=== PATIENT | female | born 1985 | race Two or more races ===

== ENCOUNTER 2021-04-15 17:26 | Emergency (ER) | payer OTHER ==
[~2021-04-15] VITALS: Ht 160 cm; Wt 86.2 kg
[2021-04-15] MEDS ORDERED: TETANUS-DIPTH-ACEL PERTUSSIS 0.5ML SYR Tdap IM ONE (17:45)
[2021-04-15 18:19] LABS: Mean Corpuscular Hemoglobin 22.9 pg (28.0-32.0)
[2021-04-15 18:21] LABS: Basophils # (auto) 0 10 ^3/uL (0-0.2); Basophils % (auto) 0.7 % (0.0-2.0); Eosinophils # (auto) 0.1 10 ^3/uL (0-0.8); Eosinophils % (auto) 1.8 % (0.0-7.0); Hematocrit 31.6 % (36.0-46.0); Hemoglobin 9.9 g/dL (12.2-16.2); Lymphocytes # (auto) 2.1 10 ^3/uL (0.4-5.4); Lymphocytes % (auto) 31.9 % (10.0-50.0); Mean Corpuscular Hgb Conc. 31.5 g/dL (32.0-36.0); Mean Corpuscular Volume 72.7 fL (80.0-100.0); Monocytes # (auto) 0.6 10 ^3/uL (0-1.3); Monocytes % (auto) 9.4 % (0.0-12.0); Neutrophils # (auto) 3.7 10 ^3/uL (1.6-8.6); Neutrophils % (auto) 56.2 % (37.0-80.0); Nucleated Red Blood Cells % 0.1 %; Red Blood Cells 4.34 10^6/uL (4.0-5.20); Red Cell Distribution Width 19.1 % (11.8-14.3); White Blood Cell 6.6 10^3/uL (4.4-10.8)
[2021-04-15 18:30] LABS: Albumin 3.8 g/dL (3.4-5.0); Calcium 8.3 mg/dL (8.5-10.1); Potassium 4.1 mmol/L (3.5-5.1)
[2021-04-15 18:34] LABS: BUN/Creatinine Ratio 18.6; Bilirubin, Total 0.2 mg/dL (0.2-1.0); Total Protein 7.8 g/dL (6.4-8.2)
[2021-04-15] MEDS ORDERED: SODIUM CHLORIDE 0.9% 1,000 ML IV ONE (18:45)
[2021-04-15] MEDS ORDERED: fentaNYL CITRATE 100 MCG/2 ML VL IV ONE ×2 (19:00→20:15)
[2021-04-15 19:28] VITALS: BP 112/82
[2021-04-15] MEDS ORDERED: MORPHINE SULFATE 4 MG/ML SYR/VIAL ONE (20:15)
[2021-04-15] MEDS ORDERED: MORPHINE SULF INJ 2 MG/ML SYRINGE 1ML ONE (20:15)
[2021-04-15] MEDS ORDERED: MORPHINE SULFATE 10 MG/ML INJ 1ML SDV IV ONE (20:30)
[2021-04-15] MEDS ORDERED: cefTRIAXone 1GM/50ML D5W 50 ML IV ONE (20:45)
== END 2021-04-15 21:32 | disposition home or self-care (01) ==
LOC: ER 17:26
DX: S01.01XA Laceration without foreign body of scalp, initial encounter (principal); S09.8XXA Other specified injuries of head, initial encounter; F10.129 Alcohol abuse with intoxication, unspecified; R51.9 Headache, unspecified; Y90.8 Blood alcohol level of 240 mg/100 ml or more; V49.49XA Driver injured in collision with other motor vehicles in traffic accident, initial encounter; Y93.89 Activity, other specified; Y92.488 Other paved roadways as the place of occurrence of the external cause; Y99.8 Other external cause status
CPT/HCPCS: 12004; 36415; 70450; 72125; 73080; 73090; 80053; 80320; 85025; 90471; 90715; 96361; 96365; 96375; 99285; J0696; J2270; J3010; J7030

== ENCOUNTER 2025-09-07 09:59 | Day surgery (SDC) | payer MEDICAID ==
[2025-09-03 10:40] LABS: Hemoglobin 11.6 g/dL (12.2-16.2)
[2025-09-03 10:42] LABS: Hematocrit 36.1 % (36.0-46.0); Mean Corpuscular Hemoglobin 24.9 pg (28.0-32.0); Mean Corpuscular Volume 77.2 fL (80.0-100.0); Nucleated Red Blood Cells % 0.1 %
[2025-09-03 10:45] LABS: Urine Budding Yeast OCCASIONAL /hpf (None Seen); Urine Protein, UAD Negative (Negative)
[2025-09-03 10:48] LABS: INR 1.04 (0.9-1.15); Partial Thromboplastin Time 23.0 SEC (24.5-34.5); Prothrombin Time 11.0 sec (9.3-11.8)
[2025-09-03 10:53] LABS: Alanine Aminotransferase 17 U/L (7-40); Alkaline Phosphatase 110 U/L (46-116); Anion Gap 8 (5-15); BUN/Creatinine Ratio 11.7 (10.0-20.0); Calcium 9.7 mg/dL (8.7-10.4); Carbon Dioxide 27 mmol/L (20-31); Chloride 104 mmol/L (98-107); Glucose 82 mg/dL (74-106); Potassium 3.8 mmol/L (3.5-5.1); Sodium 139 mmol/L (136-145); Total Protein 7.9 g/dL (5.7-8.2)
[2025-09-03 10:54] LABS: Bilirubin, Total 0.8 mg/dL (0.2-1.0)
[2025-09-03 10:55] LABS: Albumin 4.9 g/dL (3.2-4.8); Blood Urea Nitrogen 7 mg/dL (9-23)
[~2025-09-07] VITALS: Ht 162.6 cm; Wt 69.4 kg
[~2025-09-07 09:59] MED LIST: TIRZ15IN2 SC; ceFAZolin 2 GM/D5W50ml 50 ML IV ONE
[2025-09-07] MEDS ORDERED: BUPIVACAINE 0.25% INJ 50ML VIAL ONE (11:31)
[2025-09-07] MEDS ORDERED: ROPIVACAINE 0.5% (5MG/ML) 20ML AMPULE IJ ONE ×2 (13:09→15:24)
[2025-09-07] MEDS ORDERED: HYDROmorphone HCL 2 MG/ML VL/or syr ONE (13:11)
[2025-09-07] MEDS ORDERED: LIDOCAINE 2% (LOCAL ANESTH.) PF 5ml SDV ONE (13:11)
[2025-09-07] MEDS ORDERED: GLYCOPYRROLATE 0.2 MG/ML 1ML VIAL ONE (13:11)
[2025-09-07] MEDS ORDERED: MIDAZOLAM HCL 2MG/2ML 2ml VIAL (1mg/ml) ONE (13:11)
[2025-09-07] MEDS ORDERED: ONDANSETRON HCL 4 MG/2 ML VIAL ONE (13:11)
[2025-09-07] MEDS ORDERED: KETAMINE 50mg/ML 1ml syringe ONE (13:11)
[2025-09-07] MEDS ORDERED: KETOROLAC TROMETH 30 MG/ML 1ML VIAL ONE (13:11)
[2025-09-07] MEDS ORDERED: fentaNYL CITRATE 100 MCG/2 ML VL ONE (13:11)
[2025-09-07] MEDS ORDERED: PROPOFOL 10 MG/ML 20 ML IV ONE (13:50)
[2025-09-07] MEDS ORDERED: MEPERIDINE HCL (25 MG/ML) 1ML VIAL ONE (14:23)
--- NOTE | 2025-09-07 15:29 | DVHOP2 ---
Operative Report - 2 Report Details Date: 09/07/25 Preop Diagnosis: Left knee anterior cruciate ligament tear with lateral meniscus tear Postop Diagnosis: Left knee anterior cruciate ligament tear with lateral meniscus tear and chondromalacia of the lateral compartment Surgeon: Aldo Grubbs MD Bookkeeping Service Sales Agent: Josh Parra, Physician Bookkeeping Service Sales Agent Anesthesiologist: Dr. Dubon Anesthesia: General Implant: [employer] tightrope x2, internal brace x1, fiber stitch x3 Consent: The patient was informed of the risks and benefits of the procedure. These i nclude but are not limited to complications of anesthesia, postoperative infection, incomplete relief of symptoms, recurrence of symptoms, damage to blood vessels, nerves and tendons, deep venous thrombosis, pulmonary embolism and possible need for repeat surgery in the future. Complications: None Estimated Blood Loss: Less than 10 mL Indications for Surgery: The patient is a 39-year-old female who presented to the clinic with a history of knee pain and instability after injury. Clinical and radiological evaluation demonstrated complete ACL tear with lateral meniscus tear. Nonoperative and operative management options were discussed. Surgery in the form of knee arthroscopy with a ACL reconstruction using lateral meniscus repair was discussed with her. Benefits, risks and treatment alternatives were discussed specific complications of the surgery such as neurovascular injury, infection, arthrofibrosis, loss of limb or life were discussed. She decided to proceed with surgical option. Name of Procedure Performed Left knee arthroscopy with ACL reconstruction using tibialis posterior allograft, triple folded, lateral meniscus repair and chondroplasty Procedure Details Procedure Details: Procedure Details: The patient was identified in the preoperative holding area and the surgical site was marked. The consent was verified. The patient was brought into the operating room and placed supine on the operating table. General anesthesia was administered. Intravenous antibiotics were given. The extremity was prepped a nd draped in the usual sterile manner. All the bony prominences were appropriately padded. The extremity was examined under anesthesia and was found to have positive anterior drawer and Mert test with no endpoint. Pivot shift test was also positive. The extremity was prepped and draped in the usual sterile manner. A timeout was called to confirm the identity of patient, the nature of surgery, the availability of implants and x-rays and allergies to medications. Based on exam and MRI findings, an allograft was opened at the back table. This was a tibialis anterior allograft with a folded diameter of 9.5 mm. This was prepared with help of FiberWire stitches on both ends. This was placed on the Graftmaster under tension after mounting it on an Ultrabutton. Bacitracin ointment was applied. A standard anterior portal established. A 30 degree scope was inserted a standard anteromedial portal established, a probe was inserted and the findings are as follows 1. Complete ACL tear 2. Grade 2/3 chondromalacia of the lateral tibial plateau and lateral femoral condyle 3. Normal medial meniscus 4. Lateral meniscus tear, complex 5. No loose bodies 6. Mild chondromalacia in the patellofemoral joint, normal tracking. Meniscus: The lateral meniscus was a complex tear. Initially partial meniscectomy was carried out in the white-white zone. The tear extended all the way to the periphery. There was a horizontal cleavage. I decided to fix this with all-inside technique. Fiber stitch implants were used as per manufacture's recommendations. The 1st anchor was deployed, the 2nd anchor was now departed a different spot and the knotless mechanism was activated. This was a vertical mattress repair. Excellent fixation was noted. Preparation of intercondylar notch: The remaining ACL remnant was removed with the help of a shaver. A notchplasty was performed with a bur. 3 to 4 mm of yamilet ne was removed to make way for the new graft. The footprint of the ACL site was also debrided. Preparation of femoral tunnel: An outside in jig was inserted. This was positioned at the center of the ACL footprint. A guidewire was inserted. Next a reamer was inserted. This was a retroreamer from [employer]. A 20 mm tunnel was drilled. The scope was inserted into the medial portal for this step and the integrity of the lateral and posterior wall was ensured. Preparation of tibiotalar: A tibial tunnel jig was inserted. A guidepin was inserted at the center of the ACL footprint remnant. This was approximately 7 mm anterior to the PCL fibers. Next a guide pin was inserted. Next a 9.5 mm reamer was inserted. Next, a loop was inserted from the femoral side and retrieved through the tibial tunnel. Passage of graft and fixation: The graft was now brought into the operative field and the sutures were passed from the tibial side to the femoral side. The button was visualized entering the femoral tunnel with the scope on the medial border. The button was now flipped. The position was ensured by tugging on the tibial side and by cycling the knee. This was a very secure fixation. Next the adjustable loop was pulled from the lateral side and the graft was inserted into the femoral tunnel. The graft was marked at 20 mm with 0 Vicryl and that was completely inside the tunnel ensuring at least 20 mm of the tunnel inside the graft. The tibial side was now fixed with the help of another tightrope and button. The internal brace was tied over the button. Excellent fixation was noted. The scope was inserted inside the knee and the tension on the graft was noted to be excellent. Range of motion was found to be excellent along with graft isometry. The lateral femoral condyle and tibial plateau cartilage was treated with thermal ablation device. Irrigation was given. The skin incisions were closed with 2-0 Vicryl and 3-0 Monocryl. Sterile dressing was applied. A hinged range of motion brace set at -10 to 70 degrees was applied. Disposition: Good, the patient was extubated and taken to recovery without any complication Plan: Partial weight-bearing for now. To follow-up in 1 to 2 weeks in the clinic. May range her knee as per brace settings. Condition Good Disposition Home ALDO GRUBBS MD Sep 07, 2025 15:29
[2025-09-07 15:30] VITALS: PULSE 89; RESP 18; TEMP 98; O2SAT 100
--- NOTE | 2025-09-07 15:40 | DVHNC2 ---
Procedure - Left adductor canal block performed for post-operative analgesia after left ACL reconstruction. Informed consent obtained pre-op. Tie out done. Sterile prep and drape. Ultrasound examination of the anatomy of the thigh performed. 4", 21G needle placed with ultrasound guidance. 20cc 0.5% ropivacaine incrementally injected with multiple negative aspirations. Patient tolerated well. Will follow as needed. NEMESIO ESTEBAN MD Sep 07, 2025 15:40
[2025-09-07 15:45] VITALS: PULSE 82; RESP 12
[2025-09-07] MEDS ORDERED: ACETAMINOPHEN IV 1000 MG/100ML (10MG/ML) IV ONE (15:45)
[2025-09-07] MEDS ORDERED: HYDROmorphone HCL 2 MG/ML VL/or syr IV PRN (15:45)
[2025-09-07] MEDS ORDERED: ONDANSETRON HCL 4 MG/2 ML VIAL IV PRN (15:45)
[2025-09-07 16:00] VITALS: PULSE 79; RESP 12
--- NOTE | 2025-09-07 16:06 | DVH ---
CLINICAL INDICATION: ACL REPAIR TECHNIQUE: 2 radiographic views of the intraoperative surgery on the left knee were obtained. COMPARISON: None FINDINGS/IMPRESSION: 2 images of the surgery on the knee were ACL repair on the left knee. Fluoro time was 3.2 seconds Cumulative dose: 0.1 mGy
--- NOTE | 2025-09-07 16:10 | DVH ---
C-ARM FLUOROSCOPY: PROCEDURE: ACL repair FLUOROSCOPY TIME: 3.2 seconds Air Kerma: 0.10 mgy FINDINGS: Spot intraoperative C arm radiographs demonstrating ACL repair. IMPRESSION: 1. Please refer to surgical report for detailed findings.
[2025-09-07 16:15] VITALS: BP 151/93; PULSE 80; O2SAT 97
[2025-09-07 16:40] VITALS: RESP 12
== END 2025-09-07 16:40 | disposition home or self-care (01) ==
LOC: SUR 09:59
PROVIDERS: ATTEND Orthopaedic Surgery Sports Medicine
DX: S83.512A Sprain of anterior cruciate ligament of left knee, initial encounter (principal); S83.272A Complex tear of lateral meniscus, current injury, left knee, initial encounter; M94.262 Chondromalacia, left knee; G89.18 Other acute postprocedural pain; Z79.899 Other long term (current) drug therapy; Z98.84 Bariatric surgery status; Z98.890 Other specified postprocedural states; X58.XXXA Exposure to other specified factors, initial encounter; Y93.89 Activity, other specified; Y92.89 Other specified places as the place of occurrence of the external cause; Y99.8 Other external cause status
CPT/HCPCS: 29882; 29888; 36415; 64447; 73560; 80053; 81001; 81025; 85025; 85610; 85730; C1713; J0690; J1100; J1171; J1885; J2003; J2175; J2250; J2405; J2704; J2795; J3010; 76000; J3490